=== PATIENT | female | born 1995 | race Caucasian/White ===

== ENCOUNTER 2016-04-19 08:00 | Outpatient (CLI) | payer BC, OTHER | END 2016-04-19 08:01 | disposition home or self-care (01) | DX: Z36 Encounter for antenatal screening of mother (principal) ==

== ENCOUNTER 2016-05-18 03:38 | Inpatient (IN) | payer OTHER ==
[2016-05-18] MEDS ORDERED: ONDANSETRON 4 MG/2 ML VIAL IVP PRN (04:00)
[2016-05-18] MEDS ORDERED: fentaNYL 100 MCG/2 ML VIAL IVP PRN (04:00)
[2016-05-18] MEDS ORDERED: SUFENTA/BUPIV 0.4 MCG/0.0625% 150 ML EP ONE (05:04)
[2016-05-18] MEDS: LACTATED RINGERS 1,000 ML IV SCH ×2 (05:44→05:45)
[2016-05-18] MEDS ORDERED: OXYTOCIN/LACTATED RINGERS 250 ML IV ONE (07:19)
[2016-05-18] MEDS ORDERED: LIDOCAINE 1% 50 ML MDV ONE (07:20)
[2016-05-18] MEDS ORDERED: OXYTOCIN/LACTATED RINGERS 250 ML IV SCH (07:33)
[2016-05-18] MEDS ORDERED: HYDROcod/ACETAM 5/325 MG TABLET PO PRN (09:30)
[2016-05-18] MEDS: IBUPROFEN 600 MG TABLET PO SCH ×3 (10:28→23:19)
[2016-05-18] MEDS ORDERED: WITCH HAZEL/GLYCERIN 1 EACH MED..PAD TOP PRN (10:54)
[2016-05-18] MEDS ORDERED: SODIUM CHLORIDE FLUSH 0.9% 10 ML SYRINGE IVP ONE (11:10)
[2016-05-18] MEDS: HYDROCORTISONE/PRAMOXINE 10 GM PR PRN (11:14)
[2016-05-18] MEDS: DOCUSATE SODIUM 100 MG CAPSULE PO SCH (20:53)
[2016-05-19] MEDS: IBUPROFEN 600 MG TABLET PO SCH ×4 (05:23→23:16)
[2016-05-19] MEDS: DOCUSATE SODIUM 100 MG CAPSULE PO SCH ×2 (08:42→21:06)
[2016-05-19] MEDS: HYDROCORTISONE/PRAMOXINE 10 GM PR PRN (19:02)
[2016-05-20] MEDS: IBUPROFEN 600 MG TABLET PO SCH ×2 (05:31→11:20)
[2016-05-20] MEDS ORDERED: MEASLES,MUMPS & RUBELLA VACC 0.5 ML VIAL SUBQ ONE (10:29)
[2016-05-20] MEDS: DOCUSATE SODIUM 100 MG CAPSULE PO SCH (11:20)
== END 2016-05-20 12:10 | disposition home or self-care (01) | DRG 775 ==
PROC: 0HQ9XZZ Repair Perineum Skin, External Approach (ICD-10-PCS; principal; 2016-05-18)
PROC: 10E0XZZ Delivery of Products of Conception, External Approach (ICD-10-PCS; principal; 2016-05-18)
DX: O76 Abnormality in fetal heart rate and rhythm complicating labor and delivery (principal); O77.0 Labor and delivery complicated by meconium in amniotic fluid; O70.0 First degree perineal laceration during delivery; Z37.0 Single live birth; Z3A.39 39 weeks gestation of pregnancy

== ENCOUNTER 2016-07-26 14:14 | Outpatient (CLI) | payer OTHER | END 2016-07-26 14:15 | disposition home or self-care (01) | DX: Z11.3 Encounter for screening for infections with a predominantly sexual mode of transmission (principal) ==

== ENCOUNTER 2022-10-31 08:00 | Outpatient (CLI) | payer BC, OTHER ==
[2022-10-31 17:10] LABS: BILIRUBIN,URINE NEGATIVE (NEGATIVE); GLUCOSE, URINE (UA) NEGATIVE (NEGATIVE); KETONES,URINE (UA) NEGATIVE (NEGATIVE); LEUKOCYTE ESTERASE, URINE NEGATIVE (NEGATIVE); NITRITE,URINE NEGATIVE (NEGATIVE); OCCULT BLOOD,URINE NEGATIVE (NEGATIVE); PH,URINE 5.5 PH (5.0-7.5); PROTEIN,URINE NEGATIVE (NEGATIVE); UROBILINOGEN,URINE 0.2 (NORMAL) E.U./dL (NORMAL)
[2022-10-31 17:39] LABS: BACTERIA,URINE None Seen /HPF (None Seen); CLARITY,URINE CLEAR (CLEAR); RBC,URINE None Seen /HPF (0-5); SQUAMOUS EPITHELIAL CELL,UR RARE Squamous (<= Few); WBC,URINE 0-3 /HPF (0-5)
== END 2022-10-31 23:59 | disposition home or self-care (01) ==
LOC: LAB.WC 08:00
PROVIDERS: ATTEND Obstetrics & Gynecology
DX: Z34.90 Encounter for supervision of normal pregnancy, unspecified, unspecified trimester (principal)
CPT/HCPCS: 81001; 87086

== ENCOUNTER 2022-11-22 15:30 | Outpatient (CLI) | payer BC ==
--- NOTE | 2022-11-22 18:24 | Ultrasound Report ---
PROCEDURE: OB First Trimester INDICATIONS: POSITIVE TEST OUTSIDE/PRIOR DATING DATA: Last menstrual period (LMP): 09/16/2022. LMP-based estimated date of delivery (CEHCO): 06/23/2023. First dating scan (date and location): 11/22/2022. Estimated date of delivery (CHECO) from first dating scan: 06/19/2023. TECHNIQUE: Real-time scanning was performed of the fetus and maternal pelvic organs, with image documentation. COMPARISON: None FINDINGS: Umapine-rump length and heart beat noted. Embryo: 3.22 cm, 10 weeks 1 day Heart rate: 173 bpm. Other: No perigestational fluid collection. Measurement variability in dating: +/- 4 weeks by LMP, +/- 7 days by mean sac diameter (use before 6 weeks gestation if crown-rump length not able to be measured), +/- 5 days by crown-rump length (6-12 weeks gestation). Maternal organs: Ovaries appear within normal limits. IMPRESSION: 1. Living first trimester uterine with crown-rump length and heart beat measuring 10 weeks 1 day. Reviewed by: Yousif Munoz MD on 11/22/2022 6:23 PM PDT Approved by: Yousif Munoz MD on 11/22/2022 6:23 PM PDT Station ID: [id number]
== END 2022-11-22 15:31 | disposition home or self-care (01) ==
LOC: DI 15:30
PROVIDERS: ATTEND Obstetrics & Gynecology
DX: Z34.01 Encounter for supervision of normal first pregnancy, first trimester (principal)

== ENCOUNTER 2022-12-07 08:00 | Outpatient (CLI) | payer BC ==
[2022-12-07 21:22] LABS: CHLAMYDIA TRACHOMATIS DNA NEGATIVE (NEGATIVE); NEISSERIA GONORRHOEAE DNA NEGATIVE (NEGATIVE); TRICHOMONAS VAGINALIS DNA NEGATIVE (NEGATIVE)
== END 2022-12-07 23:59 | disposition home or self-care (01) ==
LOC: LAB 08:00
PROVIDERS: ATTEND Obstetrics & Gynecology
DX: Z11.3 Encounter for screening for infections with a predominantly sexual mode of transmission (principal)
CPT/HCPCS: 87491; 87591; 87661

== ENCOUNTER 2022-12-07 13:43 | Outpatient (CLI) | payer BC ==
[2022-12-07 13:54] LABS: BASOPHILS % (AUTO) 0.4 %; EOSINOPHILS # (AUTO) 0.1 10^3/uL (0.0-0.7); EOSINOPHILS % (AUTO) 0.9 %; HCT - HEMATOCRIT 38.6 % (37.0-47.0); HGB - HEMOGLOBIN 12.7 g/dL (12.0-16.0); LYMPHOCYTES # (AUTO) 1.9 10^3/uL (1.5-3.5); MEAN CORPUSCULAR HEMOGLOBIN 27.9 pg (27.0-31.0); MEAN CORPUSCULAR HGB CONC 32.9 g/dL (32.0-36.0); MEAN CORPUSCULAR VOLUME 84.8 fL (81.0-99.0); MEAN PLATELET VOLUME 9.3 fL (7.9-10.8); MONOCYTES # (AUTO) 0.5 10^3/uL (0.0-1.0); MONOCYTES % (AUTO) 5.7 %; NEUTROPHILS # (AUTO) 6.8 10^3/uL (1.5-6.6); NEUTROPHILS % (AUTO) 72.3 %; PLT - PLATELET COUNT 251 10^3/uL (130-450); RED BLOOD COUNT 4.55 10^6/uL (4.20-5.40); RED CELL DISTRIBUTION WIDTH 13.1 % (12.0-15.0); WHITE BLOOD COUNT 9.4 x10^3/uL (4.8-10.8)
[2022-12-08 05:13] LABS: RPR Non Reactive (Non Reactive)
[2022-12-08 07:10] LABS: HBsAG SCREEN Negative (Negative)
[2022-12-08 09:09] LABS: VARICELLA-ZOSTER AB IGG <135 index (Immune >165)
[2022-12-08 21:07] LABS: HCV AB Non Reactive (Non Reactive); HIV SCREEN 4TH GENERATION Non Reactive (Non Reactive)
== END 2022-12-07 13:44 | disposition home or self-care (01) ==
LOC: LAB 13:43
PROVIDERS: ATTEND Nurse Practitioner
DX: Z34.90 Encounter for supervision of normal pregnancy, unspecified, unspecified trimester (principal)
CPT/HCPCS: 36415; 85025; 86592; 86762; 86787; 86803; 86850; 86900; 86901; 87340; 87389; 87491; 87591; 87661

== ENCOUNTER 2023-02-06 15:48 | Outpatient (CLI) | payer BC ==
--- NOTE | 2023-02-07 15:34 | Ultrasound Report ---
PROCEDURE: OB 14+ Weeks INDICATIONS: SUPERVISION OF OUTSIDE/PRIOR DATING DATA: Last menstrual period (LMP): 09/16/2022. LMP-based estimated date of delivery (CHECO): 06/23/2023. First dating scan (date and location): 11/22/2022. Estimated date of delivery (CHECO) from first dating scan: 06/19/2023. The below data below was generated using the clinical CHECO of 06/23/2023 TECHNIQUE: Real-time scanning was performed of the fetus, with image documentation and biometric measurements. Endovaginal scanning: Not performed. COMPARISON: Ultrasound 11/22/2022 FINDINGS: General: A single living intrauterine gestation is present. Presentation: Variable Placenta: Placental position is posterior, without previa. Amniotic fluid index: 14.3 cm, within normal limits for gestational age. heart rate: 136 beats per minute. Maternal cervical canal: 4.4 cm long; normal length is 2.5 cm or more. biometrics: Biparietal diameter: 4.9 cm, 20 weeks 6 days, 67.4% Head circumference: 18.7 cm, 21 weeks 0 days, 68.6% Abdominal circumference: 16.2 cm, 21 weeks 2 days, 71.9% Femur length: 3.4 cm, 20 weeks 4 days, 46.8% Estimated gestational age from initial scan: 20 weeks 3 days. Composite gestational age from present scan: 20 weeks 5 days Estimated weight and percentile: 389 g, 75th percentile Measurement variability for biometric dating: +/- 10 days from 12-20 weeks gestation, +/- 2 weeks fro m 20-30 weeks gestation, +/- 3 weeks for 30 weeks gestation or later. Anatomic survey: Neuro: Ventricles are non-dilated at less than 10 mm. Cisterna magna is normal at 3-11 mm. Cerebel lum is normal in size and morphology. Nuchal skin fold: Normal at less than 6 mm between 14-20 weeks gestational age. Face: Not evaluated. Spine: No evidence for spina bifida. Heart: 4-chambered heart is present, with ventricular outflow tracts not evaluated. Diaphragm: Diaphragm is intact. Stomach: Left-sided stomach is present. Kidneys: No hydronephrosis. Normal is less than 5 mm in 2nd trimester, less than 7 mm in 3rd trimester. Cord: 3-vessel cord has orthotopic insertion. Bladder: Normal in size. Extremities: Not evaluated. IMPRESSION: 1.Single live intrauterine at 20 weeks and 5 days. 2.Limited anatomic survey is within normal limits, as described above. Recommend follow-up full anatomic survey. Reviewed by: Som Slaughter MD on 02/07/2023 3:33 PM PST Approved by: Som Slaughter MD on 02/07/2023 3:33 PM PST Station ID: [id number]
== END 2023-02-06 15:49 | disposition home or self-care (01) ==
LOC: DI 15:48
PROVIDERS: ATTEND Obstetrics & Gynecology
DX: Z34.92 Encounter for supervision of normal pregnancy, unspecified, second trimester (principal)

== ENCOUNTER 2023-02-20 15:52 | Outpatient (CLI) | payer BC ==
--- NOTE | 2023-02-22 16:53 | Ultrasound Report ---
PROCEDURE: OB F/U or Repeat INDICATIONS: SUPERVISION OF OUTSIDE/PRIOR DATING DATA: Last menstrual period (LMP): 09/16/2022. LMP-based estimated date of delivery (CHECO): 06/23/2023. First dating scan (date and location): 11/22/2022, Dr. Adhikari. Estimated date of delivery (CHECO) from first dating scan: 06/23/2023. TECHNIQUE: Real-time scanning was performed of the fetus, with image documentation and biometric measurements. Endovaginal scanning: Not performed. COMPARISON: None. FINDINGS: General: A single living intrauterine gestation is present. Presentation: Variable Placenta: Placental position is posterior, without previa. Amniotic fluid index: 13.0 cm, 29.9% for gestational age. heart rate: 145 beats per minute. Maternal cervical canal: 4.3 cm long; normal length is 2.5 cm or more. Estimated gestational age from initial scan: 22 weeks, 3 days Other: The four-chamber view, outflow tracts, chest and diaphragm, stomach, bilateral renal regions, cord insertion and urinary bladder have a normal appearance on the current study. All 4 limbs have a normal appearance on the current study. IMPRESSION: 1. Completed anatomy survey. No sonographic anatomic abnormalities. Reviewed by: Tg Arauz MD on 02/22/2023 4:52 PM [facility] Approved by: Tg Arauz MD on 02/22/2023 4:52 PM PST Station ID: [id number]
== END 2023-02-20 15:53 | disposition home or self-care (01) ==
LOC: DI 15:52
PROVIDERS: ATTEND Obstetrics & Gynecology
DX: Z34.92 Encounter for supervision of normal pregnancy, unspecified, second trimester (principal)

== ENCOUNTER 2023-02-27 08:00 | Outpatient (CLI) | payer BC, MEDICAID ==
[2023-02-27 16:07] LABS: BILIRUBIN,URINE NEGATIVE (NEGATIVE); GLUCOSE, URINE (UA) NEGATIVE (NEGATIVE); KETONES,URINE (UA) NEGATIVE (NEGATIVE); LEUKOCYTE ESTERASE, URINE NEGATIVE (NEGATIVE); NITRITE,URINE NEGATIVE (NEGATIVE); OCCULT BLOOD,URINE NEGATIVE (NEGATIVE); PH,URINE 7.5 PH (5.0-7.5); PROTEIN,URINE NEGATIVE (NEGATIVE); UROBILINOGEN,URINE 0.2 (NORMAL) E.U./dL (NORMAL)
[2023-02-27 16:23] LABS: AMORPHOUS SEDIMENT,UR Marked /LPF; BACTERIA,URINE None Seen /HPF (None Seen); CLARITY,URINE CLEAR (CLEAR); RBC,URINE 0-5 /HPF (0-5); SQUAMOUS EPITHELIAL CELL,UR RARE Squamous (<= Few); WBC,URINE 0-3 /HPF (0-5)
== END 2023-02-27 23:59 | disposition home or self-care (01) ==
LOC: LAB.WC 08:00
PROVIDERS: ATTEND Obstetrics & Gynecology
DX: Z34.90 Encounter for supervision of normal pregnancy, unspecified, unspecified trimester (principal)
CPT/HCPCS: 81001; 87086

== ENCOUNTER 2023-04-06 10:01 | Outpatient (CLI) | payer BC, MEDICAID ==
[2023-04-06 11:18] LABS: HCT - HEMATOCRIT 32.4 % (37.0-47.0); HGB - HEMOGLOBIN 10.3 g/dL (12.0-16.0); MEAN CORPUSCULAR HEMOGLOBIN 26.3 pg (27.0-31.0); MEAN CORPUSCULAR HGB CONC 31.8 g/dL (32.0-36.0); MEAN CORPUSCULAR VOLUME 82.7 fL (81.0-99.0); MEAN PLATELET VOLUME 9.4 fL (7.9-10.8); RED BLOOD COUNT 3.92 10^6/uL (4.20-5.40); WHITE BLOOD COUNT 10.4 x10^3/uL (4.8-10.8)
== END 2023-04-06 10:02 | disposition home or self-care (01) ==
LOC: LAB 10:01
PROVIDERS: ATTEND Obstetrics & Gynecology
DX: Z34.90 Encounter for supervision of normal pregnancy, unspecified, unspecified trimester (principal)
CPT/HCPCS: 36415; 82950; 85027; 86850

== ENCOUNTER 2023-05-15 15:34 | Outpatient (CLI) | payer BC, MEDICAID ==
--- NOTE | 2023-05-15 17:16 | Ultrasound Report ---
PROCEDURE: Abdomen Limited INDICATIONS: ABOMINAL PAIN TECHNIQUE: Real-time focused scanning was performed of the abdomen, with image documentation. COMPARISONS: None. FINDINGS: Liver: Liver is normal in size and homogeneous in echotexture. Hepatopetal flow is seen in the port al vein. Gallbladder: The gallbladder appears normal without gallstones or gallbladder wall thickening. There is no pericholecystic fluid. Sonographic Padilla sign is negative. Biliary ducts: Intrahepatic bile ducts are non-dilated. Extrahepatic bile duct caliber measures 3 m m. Normal is 6-7 mm or less in diameter, or 10 mm or less post-cholecystectomy. Pancreas: Not well visualized due to overlying bowel gas. Right kidney: Normal in size and echotexture. Right kidney measures 11.4 cm long. No hydronephrosis or nephrolithiasis. No solid masses. No complex renal cystic lesions which require follow-up. Miscellaneous: Gravid uterus. IMPRESSION: Normal gallbladder. No acute sonographic abnormality in the right upper quadrant. Reviewed by: Manish Mandujano MD on 05/15/2023 5:14 PM PST Approved by: Manish Mandujnao MD on 05/15/2023 5:14 PM PST Station ID: [id number]
== END 2023-05-15 15:35 | disposition home or self-care (01) ==
LOC: DI 15:34
PROVIDERS: ATTEND Obstetrics & Gynecology
DX: O99.891 Other specified diseases and conditions complicating pregnancy (principal); R10.11 Right upper quadrant pain; Z3A.34 34 weeks gestation of pregnancy

== ENCOUNTER 2023-05-25 17:31 | Outpatient (CLI) | payer BC, MEDICAID ==
--- NOTE | 2023-05-26 19:05 | Ultrasound Report ---
PROCEDURE: OB Follow up INDICATIONS: UTERINE SIZE-DATE DISCREPANCY OUTSIDE/PRIOR DATING DATA: Last menstrual period (LMP): 09/16/2022. LMP-based estimated date of delivery (CHECO): 06/23/2023. First dating scan (date and location): 11/22/2022. Estimated date of delivery (CHECO) from first dating scan: 06/09/2023. The below data below was generated using the clinical CHECO of 06/23/2023 TECHNIQUE: Real-time scanning was performed of the fetus, with image documentation and biometric measurements. Endovaginal scanning: Not performed. COMPARISON: OB ultrasound on May 05, 2023 FINDINGS: General: A single living intrauterine gestation is present. Presentation: Vertex Placenta: Placental position is posterior, without previa. Amniotic fluid index: 10.1 cm, within normal limits for gestational age. heart rate: 143 beats per minute. Maternal cervical canal: Not well seen biometrics: Biparietal diameter: 8.87 cm, 35 weeks and 6 days, 58.1% Head circumference: 32.5 cm, 37 weeks and 4 days, 60.3% Abdominal circumference: 34.4 cm, 38 weeks and 2 days, 19.3% Femur length: 6.63 cm, 34 weeks and 1 day, 9% (likely an underestimate) Estimated gestational age from initial scan: 35 weeks and 6 days. Composite gestational age from present scan: 36 weeks and 3 days Estimated weight and percentile: 3086.4 g, 80.5% Measurement variability in biometric dating: +/- 10 days from 12-20 weeks gestation, +/- 2 weeks from 20-30 weeks gestation, +/- 3 weeks at 30 weeks gestation or more. Other: Not applicable. IMPRESSION: 1.Single living intrauterine gestation in vertex presentation. Gestational age from present scan is 3 6 weeks and 3 days. 2.Interval growth is within normal limits with estimated weight at 80.5%. 3.Nuchal cord. Attention on follow-up. Reviewed by: Navin Soto MD on 05/26/2023 7:03 PM PST Approved by: Navin Soto MD on 05/26/2023 7:03 PM PST Station ID: [id number]
== END 2023-05-25 17:32 | disposition home or self-care (01) ==
LOC: DI 17:31
PROVIDERS: ATTEND Obstetrics & Gynecology
DX: O26.843 Uterine size-date discrepancy, third trimester (principal); Z3A.36 36 weeks gestation of pregnancy

== ENCOUNTER 2023-06-05 08:00 | Outpatient (CLI) | payer BC, MEDICAID | END 2023-06-05 23:59 | disposition home or self-care (01) | LOC: LAB.WC 08:00 | PROVIDERS: ATTEND Obstetrics & Gynecology | DX: Z36.85 Encounter for antenatal screening for Streptococcus B (principal) | CPT/HCPCS: 87081; 87181; 87797 ==

== ENCOUNTER 2023-06-28 14:44 | Inpatient (IN) | payer BC, MEDICAID ==
[2023-06-28] MEDS ORDERED: METHYLERGONOVINE 0.2 MG/ML VIAL IM PRN (14:51)
[2023-06-28] MEDS ORDERED: hydrALAZINE INJ 20 MG/ML VIAL IVP PRN ×2 (14:51)
[2023-06-28] MEDS ORDERED: miSOPROStoL 200 MCG TABLET PR PRN (14:51)
[2023-06-28] MEDS ORDERED: LACTATED RINGERS 1,000 ML IV PRN (14:51)
[2023-06-28] MEDS ORDERED: miSOPROStoL 200 MCG TABLET BC PRN (14:51)
[2023-06-28] MEDS ORDERED: SODIUM CHLORIDE FLUSH 0.9% 10 ML SYRINGE IVP PRN (14:51)
[2023-06-28] MEDS ORDERED: TRANEXAMIC ACID IN NACL 1,000 MG/100 ML BAG IV PRN (14:51)
[2023-06-28] MEDS ORDERED: lidocaine 1% 20 ML MDV ID PRN (14:51)
[2023-06-28] MEDS ORDERED: fentaNYL 100 MCG/2 ML VIAL IVP PRN (14:51)
[2023-06-28] MEDS ORDERED: TERBUTALINE 1 MG/ML VIAL SUBQ PRN (14:51)
[2023-06-28] MEDS ORDERED: NIFEdipine 10 MG CAPSULE PO PRN (14:51)
[2023-06-28] MEDS ORDERED: LABETALOL 20 MG/4 ML SYRINGE IVP PRN ×3 (14:51)
[2023-06-28] MEDS ORDERED: OXYTOCIN 10 UNIT/ML VIAL IM PRN (14:51)
[2023-06-28] MEDS ORDERED: OXYTOCIN/SODIUM CHLORIDE 500 ML IV PRN (14:51)
[2023-06-28] MEDS ORDERED: CARBOPROST TROMETHAMINE 250 MCG/ML VIAL IM PRN (14:51)
[2023-06-28] MEDS ORDERED: SODIUM CHLORIDE FLUSH 0.9% 10 ML SYRINGE IVP SCH (15:00)
--- NOTE | 2023-06-28 16:01 | ANESTHESIA ---
Pre-Anesthesia VS, & Labs - Diagnosis labor induction - Procedure labor epidural Vital Signs: Temp Pulse Resp BP Pulse Ox O2 Flow Rate 36.8 C 06/28/23 14:55 Height: 5 ft 5 in Weight (kg): 92.079 kg Body Mass Index: 33.7 BMI Classification: Obese - NPO Other (to be clears only after epidural) - Is Patient ?: Yes Home Medications and Allergies Active Medications Carboprost Tromethamine (Carboprost Tromethamine 250 Mcg/Ml Vial) 250 mcg IM .ONCE PRN PRN Reason: Hemorrhage Fentanyl (Fentanyl 100 Mcg/2 Ml Vial) 50 mcg IVP Q1H PRN PRN Reason: Severe Pain (score 7-10) Hydralazine HCl (Hydralazine Inj 20 Mg/Ml Vial) 5 - 10 mg IVP Q20M PRN; Protocol PRN Reason: SBP> or= 160 OR DBP> or= 110 Hydralazine HCl (Hydralazine Inj 20 Mg/Ml Vial) 10 mg IVP .ONCE PRN; Protocol PRN Reason: SBP> or= 160 OR DBP> or= 110 Lactated Ringer's (Lr) 500 mls @ 999 mls/hr IV PRN PRN PRN Reason: NEEDED PER PROVIDER ORDERS Oxytocin/Sodium Chloride (Pitocin/Sodium Chloride) 500 mls @ 999 mls/hr IV PRN PRN; Protocol PRN Reason: POST- HEMORR PREVENTION Tranexamic Acid (Tranexamic 1,000 Mg/100ml-Nacl) 1,000 mg in 100 mls @ 600 mls/hr IV Q30M PRN PRN Reason: EBL >1200mL and within 3hr Labetalol HCl (Labetalol 20 Mg/4 Ml Syringe) 20 - 80 mg IVP Q10M PRN; Protocol PRN Reason: SBP> or= 160 OR DBP> or= 110 Labetalol HCl (Labetalol 20 Mg/4 Ml Syringe) 20 mg IVP .ONCE PRN; Protocol PRN Reason: SBP> or= 160 OR DBP> or= 110 Labetalol HCl (Labetalol 20 Mg/4 Ml Syringe) 20 - 40 mg IVP Q10M PRN; Protocol PRN Reason: SBP> or= 160 OR DBP> or= 110 Lidocaine HCl (Lidocaine 1% 20 Ml Mdv) 20 ml ID .ONCE PRN PRN Reason: PERINEAL REPAIR Stop: 07/01/23 14:51 Methylergonovine Maleate (Methylergonovine 0.2 Mg/Ml Vial) 0.2 mg IM .ONCE PRN PRN Reason: Hemorrhage Misoprostol (Misoprostol 200 Mcg Tablet) 600 mcg BC .ONCE PRN PRN Reason: Hemorrhage Misoprostol (Misoprostol 200 Mcg Tablet) 800 mcg DE .ONCE PRN PRN Reason: Hemorrhage Nifedipine (Nifedipine 10 Mg Capsule) 10 - 20 mg PO Q20M PRN; Protocol PRN Reason: SBP> or= 160 OR DBP> or= 110 Oxytocin (Oxytocin 10 Unit/Ml Vial) 10 unit IM .ONCE PRN PRN Reason: Step One if no IV access. Sodium Chloride (Sodium Chloride Flush 0.9% 10 Ml Syringe) 10 ml IVP PRN PRN PRN Reason: NEEDED PER PROVIDER ORDERS Sodium Chloride (Sodium Chloride Flush 0.9% 10 Ml Syringe) 10 ml IVP Q8H FINA Terbutaline Sulfate (Terbutaline 1 Mg/Ml Vial) 0.25 mg SUBQ .ONCE PRN PRN Reason: Tachystole Allergies/Adverse Reactions: Allergies Allergy/AdvReac Type Severity Reaction Status Date / Time No Known Drug Allergies Allergy Verified 05/18/16 04:07 Anes History & Medical History - Anesthetic History Anesthesia Complications: reports: No previous complications - Medical History Cardiovascular: reports: None Pulmonary: reports: None Smoking Status: Never smoker Exam General: Alert, Oriented x3 Dental: WNL Mouth Opening: Greater than 4 Fingerbreadths Neck Mobility: Normal Mallampati classification: II Thyromental Distance: greater than 6 cm Respiratory: Lungs clear Cardiovascular: Regular rate Plan Anesthesia Type: Epidural Consent for Procedure(s) Verified and Reviewed: Yes Code Status: Attempt Resuscitation ASA classification: 2-Mild systemic disease Is this case an emergency?: No
[2023-06-28 16:27] LABS: BASOPHILS # (AUTO) 0.1 10^3/uL (0.0-0.1); BASOPHILS % (AUTO) 0.5 %; EOSINOPHILS # (AUTO) 0.1 10^3/uL (0.0-0.7); EOSINOPHILS % (AUTO) 0.9 %; HCT - HEMATOCRIT 40.2 % (37.0-47.0); HGB - HEMOGLOBIN 12.7 g/dL (12.0-16.0); LYMPHOCYTES # (AUTO) 1.9 10^3/uL (1.5-3.5); LYMPHOCYTES % (AUTO) 20.5 %; MEAN CORPUSCULAR HGB CONC 31.6 g/dL (32.0-36.0); MEAN CORPUSCULAR VOLUME 82.2 fL (81.0-99.0); MEAN PLATELET VOLUME 11.1 fL (7.9-10.8); MONOCYTES # (AUTO) 1.1 10^3/uL (0.0-1.0); MONOCYTES % (AUTO) 11.4 %; NEUTROPHILS % (AUTO) 65.7 %; PLT - PLATELET COUNT 289 10^3/uL (130-450); RED BLOOD COUNT 4.89 10^6/uL (4.20-5.40); RED CELL DISTRIBUTION WIDTH 15.9 % (12.0-15.0); WHITE BLOOD COUNT 9.2 x10^3/uL (4.8-10.8)
[2023-06-28] MEDS ORDERED: CALCIUM CARBONATE CHEW 500 MG TABLET PO PRN (16:58)
[2023-06-28] MEDS ORDERED: AMPICILLIN 2 GM in SODIUM CHLORIDE 0.9% MINIBAG 100 ML IV STA (16:58)
[2023-06-28] MEDS ORDERED: ONDANSETRON 4 MG/2 ML VIAL IVP PRN (16:58)
[2023-06-28] MEDS ORDERED: diphenhydrAMINE INJ 50 MG/ML VIAL IVP PRN (16:58)
[2023-06-28] MEDS ORDERED: METOCLOPRAMIDE 10 MG/2 ML VIAL IVP PRN (16:58)
[2023-06-28] MEDS ORDERED: ACETAMINOPHEN 500 MG TABLET PO PRN (16:58)
[2023-06-28] MEDS ORDERED: OXYTOCIN/SODIUM CHLORIDE 500 ML IV SCH (17:00)
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
[2023-06-28] MEDS ORDERED: AMPICILLIN 1 GM in SODIUM CHLORIDE 0.9% MINIBAG 100 ML IV SCH (21:00)
== END 2023-06-28 17:20 | disposition home or self-care (01) | DRG 833 ==
LOC: WFO 14:44 → FBP 14:45 → WFO 14:50 → FBP 14:51
PROVIDERS: ADMIT Obstetrics & Gynecology; ATTEND Obstetrics & Gynecology
DX: O48.0 Post-term pregnancy (principal); Z3A.40 40 weeks gestation of pregnancy; Z53.8 Procedure and treatment not carried out for other reasons
CPT/HCPCS: 85025; 86850; 86900; 86901

== ENCOUNTER 2023-06-29 08:31 | Inpatient (IN) | payer BC, MEDICAID ==
[2023-06-29] MEDS ORDERED: ONDANSETRON 4 MG/2 ML VIAL IVP PRN ×2 (08:38→20:02)
[2023-06-29] MEDS ORDERED: miSOPROStoL 200 MCG TABLET BC PRN (08:38)
[2023-06-29] MEDS ORDERED: CARBOPROST TROMETHAMINE 250 MCG/ML VIAL IM PRN (08:38)
[2023-06-29] MEDS ORDERED: fentaNYL 100 MCG/2 ML VIAL IVP PRN (08:38)
[2023-06-29] MEDS ORDERED: OXYTOCIN 10 UNIT/ML VIAL IM PRN (08:38)
[2023-06-29] MEDS ORDERED: OXYTOCIN/SODIUM CHLORIDE 500 ML IV PRN (08:38)
[2023-06-29] MEDS ORDERED: METHYLERGONOVINE 0.2 MG/ML VIAL IM PRN (08:38)
[2023-06-29] MEDS ORDERED: SODIUM CHLORIDE FLUSH 0.9% 10 ML SYRINGE IVP PRN (08:38)
[2023-06-29] MEDS ORDERED: TRANEXAMIC ACID IN NACL 1,000 MG/100 ML BAG IV PRN (08:38)
[2023-06-29] MEDS ORDERED: lidocaine 1% 20 ML MDV ID PRN (08:38)
[2023-06-29] MEDS ORDERED: SODIUM CHLORIDE FLUSH 0.9% 10 ML SYRINGE IVP SCH (09:00)
[2023-06-29] MEDS: AMPICILLIN 2 GM in SODIUM CHLORIDE 0.9% MINIBAG 100 ML IV ONE (09:16)
[2023-06-29] MEDS: LACTATED RINGERS 1,000 ML IV SCH (09:17)
[2023-06-29] MEDS: OXYTOCIN/SODIUM CHLORIDE 500 ML IV SCH (09:48)
[2023-06-29] MEDS: AMPICILLIN 1 GM in SODIUM CHLORIDE 0.9% MINIBAG 100 ML IV SCH (13:30)
[2023-06-29] MEDS ORDERED: ROPIVACAINE 0.2% 200 MG/100 ML BAG EP ONE ×2 (19:31→19:33)
[2023-06-29] MEDS ORDERED: LIDOCAINE 2%-EPI 1:100000 20 ML MDV ONE (19:31)
[2023-06-29] MEDS ORDERED: diphenhydrAMINE INJ 50 MG/ML VIAL IVP PRN (20:02)
[2023-06-29] MEDS ORDERED: METOCLOPRAMIDE 10 MG/2 ML VIAL IVP PRN (20:02)
[2023-06-29] MEDS ORDERED: ROPIVACAINE 0.2% 200 MG/100 ML BAG EP PRN (20:02)
[2023-06-29] MEDS ORDERED: NALBUPHINE 10 MG/ML AMP IVP PRN (20:02)
[2023-06-29] MEDS ORDERED: NALOXONE 0.4 MG/ML VIAL IVP PRN (20:02)
[2023-06-29] MEDS ORDERED: ePHEDrine 50 MG/ML VIAL IVP PRN (20:02)
--- NOTE | 2023-06-29 20:49 | HISTORY & PHYSICAL EXAMINATION ---
Admit History - Visit Reason Visit Reason: Other (induction of labor at 40+ weeks ga.) - : 2 Parity: 1 Care: positive: [facility] Complications This : positive: None Smoking Status: Never smoker - Mother's Labs GBS: positive: Group B Strep Positive Rubella Status: positive: Non-immune - Other Maternal History Other Maternal History: 27 yo at 40w 6d by LMP = 10 week ultrasound. presents today for induction of labor. came in yesterday but then sent home as staffing issues. 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 in pain? no Vitals Entered By: Kasey Billingsley (June 16, 2023 1:24 PM) Flowsheet View for Follow-up Visit Estimated weeks of gestation: 39 0/7 Weight: 200 Blood pressure: 124 / 70 Fundal height: not done FHR: 139 Vaginal bleeding: no Vaginal discharge: no activity: yes Labor symptoms: yes position: vertex Cx Dilation: 2.5 Cx Effacement: 60% Cx Station: -2 Taking vits? Y Smoking: n/a Next visit: 1 wk Comment: Baby active. Came in for membrane sweeping, and she definately received a good sweeping. Does not desire IOL. Some contractions, but nothing consistent. Less differentiation today from inner to outer os. Thinks a [employer] Day would be a great day to go into spontaneous labor~KJB LMP: 09/16/22 CHECO by LMP: 06/23/23 US: 11/22/2022; 10+1 CW LMP Final CHECO: 06/23/2023 FOB: Jorgito, new FOB - 7yo son - uncomplicated first last time. 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 . GERD - PPI effective Rubella NON-immune (equivocal) Varicella NON-immune anemia in third trimester - started on iron Apr. Size greater than dates EFW 05/25: EFW 80.5%, MARQUIS 10.1 Pre- Weight:160.8 BMI: 26.86 Blood type: A+ Rh: positive Antibody: negative CBC: PLT-251 HCT-38.6 HGB-12.7 RUB: equivocal VZV: non-immune HBsAg: negative HepC: negative RPR/AB-EIA: non-reactive HIV: negative PAP: August 31, 2022, "abnormal" per pt with HSV1 noted GC/CT: collected 12/07 Negative HSV: cold sores on self Genetic testing: declines 01/02 Covid: Pfizer initial set + 1 booster Flu: Given 01/02/2023 FAS: 02/06 Placenta: Posterior Cord: 3VC MARQUIS: 14.3 EFW: 389 75%tile 50gm OGCT: 116 TDAP:04/06 Breast Pump:04/06 3rd trimester H/H 10.3/32.4 PLT 227 GBS: Positive - resistant to clindamycin Delivery plan: Contraception: no more children, wants FOB to get a vasectomy. Declined signing tubal consents after counselling. Impression & Recommendations: Problem # 1: Supervision of normal (ICD-V22.1) (ZXR19-C46.90) Problem # 2: Group B strep in , third trimester (ICD-647.83) (ICD10- O99.820) Other Orders: Visit Code Hold ([facility]-[id number]) P: 1 T: 1 A: 0 L: 1 LMP: 09/16/2022 EDC: 06/23/2023 Height: 65 (05/22/2023 11:21:49 AM) Weight: 200 Chlamydia: NEGATIVE (12/07/2022 1:00:00 PM) Group B: POSITIVE (06/05/2023 11:01:00 AM) Blood Type: A+ (12/07/2022 8:33:52 AM) RH Type: pos (12/07/2022 8:33:57 AM) Last Antibody Screen: negative (12/07/2022 8:34:00 AM) Is pt sexually active? yes Chlamydia: NEGATIVE (12/07/2022 1:00:00 PM) RPR: Non Reactive (12/07/2022 1:49:00 PM) - HPI Diagnosis/Indication for NST: Other (before induction) Current EDU 06/23/23 Gestation 40 Weeks and 6 Days 2 Vital Signs Temperature 97.9 F 06/29/23 09:35 Temperature 97.9 F 06/29/23 09:35 Heart Rate Respiratory Rate Blood Pressure O2 Saturation If not protocol: Oxygen Flow, liters/minute - NST Procedure Reactive for of 32 weeks gestation or more. NST tracing contains at least two heart rate accelerations that are at least 15 beats per minute above the baseline rate and lasting at least 15 seconds from onset to return to baseline within a twenty minute period. - Results and Plan Findings/Impression: reactive NST Plan: start pitocin Meds/Allgy - Home Medications Home Medications: Ambulatory Orders Medication Instructions Recorded Confirmed Ibuprofen [Motrin] 600 mg PO Q6H 06/29/23 06/29/23 - Allergies Allergies/Adverse Reactions: Allergies Allergy/AdvReac Type Severity Reaction Status Date / Time No Known Drug Allergies Allergy Verified 05/18/16 04:07 Review of Systems - Respiratory Respiratory: denies: SOB at rest - Gastrointestinal Gastrointestinal: denies: Vomiting - Neurological Neurological: denies: Headache Physical - Abdominal Exam Vital Signs: Temp Pulse Resp BP Pulse Ox O2 Flow Rate 97.9 F 06/29/23 09:35 Contraction Frequency (min/apart): irregular Contraction Intensity: positive: Mild - Monitoring Strip Review: positive: Category I - Presentation Presentation: positive: Vertex - Vaginal Exam Membranes: positive: Membranes intact Dilation (in cm): per RN - Speculum Exam Speculum Exam Performed: positive: No Plan for Labor - Plan For Labor I expect patient to be DC'd or transferred within 96 hours.: Yes Plan for Labor: induction now 40w6d. will give GBS prophylaxis, and start pitocin and then AROM after 4 hrs after ampicillin. consents for induction reviewed and signed yesterday. made plan as above with her then. does wish epidural. anticipate later today.
--- NOTE | 2023-06-29 20:59 | PROVIDER PROGRESS NOTE ---
Labor Progress Note - Uterine Monitoring Uterine Monitoring Mode: positive: External toco Contraction Frequency (min/apart): 2-3 Contraction Intensity: positive: Moderate Uterine Resting Tone: positive: Soft - Monitoring Monitor Mode: positive: External ultrasound Heart Rate Variability: positive: Moderate (6-25 bmp) Accelerations: positive: Present, 15x15 Decelerations: positive: None Strip Review: positive: Category I - Vaginal Exam Dilation (in cm): 4 Effacement (%): 80 Station: -3 Cervical Position: Posterior - Labor Progress Note Labor Progress Note/Additional Text: AROM Done and clear fluid. pitocin at 5 mu. using nitrous some. not ready for epidural yet. will decrease pitocin as needed. or increase.
--- NOTE | 2023-06-29 22:37 | CONSULTATION NOTE ---
Consultation Report: Called for patient concerns of epidural level getting too high. Assessed at T4 per RN prior to arrival. VSS. Pt with good movement of LE, diminished sensation. No pain with contractions. Epidural rate decreased to 8cc [id number] with an additional 20 minute delay for first bolus after changes. Discussed changes with patient/RN.
--- NOTE | 2023-06-29 23:34 | DELIVERY NOTE ---
Delivery Note - Labor Labor: positive: Induced by oxytocin - Infant Delivery Method Delivery Method: positive: Spontaneous vaginal delivery - Presentation Presentation: positive: Vertex, OA - occiput anterior - Nuchal Cord Nuchal Cord: positive: Present, Reduced - Anesthetic Anesthetic Type: - Amniotic Fluid Description Amniotic Fluid Description: positive: Clear - Episiotomy Type Episiotomy Type: positive: None - Laceration Laceration: positive: 1st degree - Suture Suture Type: positive: Vicryl (Rapide) Suture Size: positive: 3-0 - Delivery Outcome Delivery Outcome: positive: Livebirth - [place]: positive: Placed in direct skin contact with mother, Suctioned, Stimulated, Warmed, [place] used sex: positive: Male - Cord Cord: positive: 3 vessels, True knot - Placenta Placenta: positive: Intact, Spontaneous - Estimated Blood Loss Estimated Blood Loss (in cc): 200 - Post Delivery Events Post Delivery Events: positive: No post delivery events - Delivery Comments (Free Text/Narrative) Delivery Comments (Free Text/Narrative): patient was admitted for labor induction as she was 40w6d. she was 3 cm oxytocin was started and Ampicillin. AROM was performed. Epidural was placed in the evening and then she progressed to complete about 10 pm. She pushed thru about 6 contractions to deliver her baby in OA position over intact perineum. Baby was placed up on her belly after and remained there. There was a nuchal cord x 1 reduced easily. Cord was clamped after about 2 min and cut by dad. Oxytocin was infused. Placenta delivered spontaneously. Uterus contracted well. There were small, bilateral periurethral lacerations that were not bleeding and not repaired. There was a small perineal laceration that was repaired with a figure of 8 of 0 Vicryl Rapide suture. no complications. Patient, FOB Jorgito, and baby Seth are doing well. Patient's mom also present. counts were correct.
[2023-06-29] MEDS ORDERED: HYDROCORTISONE 1% CREAM 28 GM TUBE PR PRN (23:35)
[2023-06-30] MEDS: IBUPROFEN 600 MG TABLET PO SCH (02:20)
[2023-06-30] MEDS: ACETAMINOPHEN 325 MG TABLET PO PRN (04:33)
[2023-06-30] MEDS: DOCUSATE SODIUM 100 MG CAPSULE PO SCH (08:58)
--- NOTE | 2023-06-30 09:11 | PROVIDER PROGRESS NOTE ---
Subjective - Subjective Subjective: Subjective Patient reports she is doing well. Lochia appropriate. Denies heavy bleeding. Ambulating. Pelvic and abdominal pain well-controlled. Tolerating oral intake. Diet: Regular. Voiding without difficulty. Passing flatus. Denies BM. Patient is bonding with baby in room Breast feeding going well. Denies feeling lightheaded, dizzy or excessively fatigued. Objective General: Alert, oriented, no apparent distress. Cardiovascular: Regular rate. Regular rhythm. Lungs: No increased work of breathing. Abdomen: Uterus firm. Below umbilicus. No guarding or rebound. Extremities: No pain on palpation. No cords palpated. Distal pulses intact. Assessment and Plan day 1. -Routine care -Anticipate discharge tomorrow Objective - Vital Signs/Intake & Output Vital Signs: Vital Signs x48h Temp Pulse Resp BP Pulse Ox 06/30/23 04:43 98.2 F 75 16 135/80 H 06/30/23 02:00 98.4 F 102 H 16 122/75 98 Intake & Output: Intake & Output 06/27/23 06/28/23 06/29/23 06/30/23 23:59 23:59 23:59 23:59 Intake Total 1749.417 816.416 Output Total 750 Balance 1749.417 66.416 - Lab Results Other Labs: Lab Results x24hrs 06/29/23 Range/Units 09:45 Blood Type A POSITIVE Antibody Screen NEGATIVE
--- NOTE | 2023-06-30 11:27 | PHARMACY PROGRESS NOTE ---
- Best Possible Medication History Admit Date and Time: 06/29/23 0838 Processed by: Pharmacy Medications reviewed in ED?: Yes Medication History completed: Yes Patient Interview: Pt unable to participate Secondary Source(s): Pharmacy records, Insurance records As the person ultimately responsible for medication therapy, providers are able to order a medication from an existing home medication list in [facility] via the "Reconcile Routine" prior to Confirmation of that medication by technical support coordinator. Such practice is discouraged except when the physician, in their clinical judgment, deems that a medical need exists for a medication without regard to previous use.
[2023-06-30] MEDS: WITCH HAZEL/GLYCERIN 1 PAD TOP PRN (20:39)
[2023-07-01 09:32] VITALS: BP 116/78; O2SAT 96
--- NOTE | 2023-07-01 09:59 | Discharge Plan ---
Discharge Plan Problem Reviewed?: Yes Disposition: Home, Self Care Condition: Good Diet: Regular Activity Restrictions: Additional Comments Shower Restrictions: No Instruction Topics: Vaginal After, Depression No Smoking: If you smoke, Please STOP! Call for help. Follow-up with: Shen Jacob MD [Provider Admit Priv/Credential] -
--- NOTE | 2023-07-01 10:02 | DISCHARGE SUMMARY ---
Discharge Summary Admit Date: 06/29/23 Discharge Date: 07/01/23 Discharging Provider: Shen Jacob MD Code Status: Attempt Resuscitation Condition at Discharge: Good Discharge Disposition: 01 Home, Self Care - DIAGNOSES Admission Diagnoses: 40 weeks gestation Induction of labor GBS positive Discharge Diagnoses with Status of Each Condition: Same Delivery of live lynne Status post spontaneous vaginal delivery - HPI History of Present Illness: Subjective Patient reports she is doing well. Lochia appropriate. Denies heavy bleeding. Ambulating. Pelvic and abdominal pain well-controlled. Tolerating oral intake. Diet: Regular. Voiding without difficulty. Passing flatus. Denies BM. Patient is bonding with baby Breast feeding going well. Denies feeling lightheaded, dizzy Objective General: Alert, oriented, no apparent distress. Cardiovascular: Regular rate. Regular rhythm. Lungs: No increased work of breathing. Abdomen: Uterus firm. Below umbilicus. No guarding or rebound. Extremities: No pain on palpation. No cords palpated. Distal pulses intact. - HOSPITAL COURSE Hospital Course: Patient was admitted at 40 weeks gestation for induction of labor. She was 3 cm dilated and oxytocin was started as well as ampicillin. She had a artificial rupture of membranes. She received an epidural for pain control. was uncomplicated, but had a nuchal cord that was reduced. course was unremarkable and was discharged on day 2. - ALLERGIES Allergies/Adverse Reactions: Allergies Allergy/AdvReac Type Severity Reaction Status Date / Time No Known Drug Allergies Allergy Verified 05/18/16 04:07 - MEDICATIONS Home Medications: Ambulatory Orders Medication Instructions Recorded Confirmed Famotidine 40 mg PO DAILY 06/30/23 06/30/23 Ferrous Sulfate [Feosol] 325 mg PO BID 06/30/23 06/30/23 Ondansetron HCl 4 mg PO TID PRN 06/30/23 06/30/23 - FOLLOW UP [facility] - TIME SPENT Time Spent in Discharge (Minutes): 20
[2023-07-01] MEDS: MEASLES,MUMPS & RUBELLA VACC 0.5 ML VIAL SUBQ ONE (11:42)
[2023-07-01] MEDS: VARICELLA VACCINE LIVE/PF 1,350 UNIT/0.5 ML VIAL SUBQ ONE (11:56)
--- NOTE | 2023-07-01 13:36 | Labor Flowsheet ---
Labor Flowsheet Datetime Report Generated by CPN: 07/01/2023 13:36 Datetime: 07/01/2023 11:43 VITAL SIGNS NBP Sys/Daina/Mean (mmHg): 120 : 71 : 82 Pulse: 68 Datetime: 06/30/2023 20:19 SpO2 (%): 97 Datetime: 06/30/2023 01:10 Respirations: 16 PAIN Pain Scale: 1 Datetime: 06/29/2023 23:59 Temperature (C): 36.9 Datetime: 06/29/2023 23:30 Epidural Procedure Other: Cath Removed; Cath Intact Datetime: 06/29/2023 23:15 Stage of : Recovery Datetime: 06/29/2023 23:14 LaborFlag: Labor Datetime: 06/29/2023 23:13 MEDICATIONS Pitocin (milliunits): Increased to @ 250 Datetime: 06/29/2023 23:09 Medication Comments: pit bolus startted Datetime: 06/29/2023 22:55 STAGE 2 Pushing: Coached on Pushing Pushing Position: Pushing with Contractions Pushing Progress: Descent with Pushing Datetime: 06/29/2023 22:48 ASSESSMENT A Monitor Mode: External US Accelerations: 15X15 VAGINAL EXAM Dilatation (cm): 10.0 Station: 2 Exam by: Aguillon Datetime: 06/29/2023 22:46 COMMUNICATION Communication: Provider at Bedside Datetime: 06/29/2023 22:45 Anesthesia Level Check: T9 Datetime: 06/29/2023 22:33 UTERINE ACTIVITY Monitor Mode: External Frequency (min): 1-3 Quality: Strong Duration (sec): 60 Pattern: Normal: <= 5 Contractions in 10 Minutes Resting Tone (Palpate): Relaxed Pitocin Checklist: At Least 1 Acceleration of 15 bpm x 15 Seconds in 30 Minutes or Adequate Variabi lity; No More than 1 Late Deceleration Occurred in Past 30 Minutes; No More than 2 Variable Decelerat ions > 60 Seconds in Duration and decreasing >60 bpm in 30 minutes; No More than 5 Uterine Contractio ns in 10 Minutes for any 20 Minute Interval; Uterus Palpates Soft between Contractions FHR Baseline Rate : 130 FHR Baseline Changes: No Baseline Change Variability: Moderate 6-25 bpm Decelerations: Variable Category: Category II Datetime: 06/29/2023 22:31 Notification Reason: Status Update; Labor Status Communication Comments: Dr Aguillon on her way in Datetime: 06/29/2023 22:25 Anesthesia Comments: at bedside bolus turned down Datetime: 06/29/2023 22:13 Patient Position/Activity: Left Tilt; High Fowlers Datetime: 06/29/2023 21:58 MATERNAL ASSESSMENT Level of Consciousness: Alert DTR's/Clonus: DTRs 1+ Headache: Denies Nausea/Vomiting: Denies RUQ Epigastric Pain: Denies Datetime: 06/29/2023 21:55 Antibiotics: Ampicillin IV 1 Gm Datetime: 06/29/2023 21:42 Monitor Interventions for UA: [place] Adjusted Datetime: 06/29/2023 21:05 Effacement (%): 90 Datetime: 06/29/2023 20:30 I/O Interventions: [place]oso Cath Inserted Datetime: 06/29/2023 19:50 Epidural Procedure: Loading Dose Datetime: 06/29/2023 19:43 TEACHING Instructional Method: Verbal; Patient Instructed; Family/Support Person Instructed Plan of Care: Plan of Care Discussed Pain Management: Epidural Datetime: 06/29/2023 19:42 PROCEDURE TIME OUT Procedure Type: Epidural Datetime: 06/29/2023 19:37 Procedure Verify: Correct Patient Identity; Correct Side and Site are Marked; Accurate Procedure Co nsent Form; Agreement on Procedure to be Done; Correct Patient Position; Relevant Images and Results are Properly Labeled and Displayed; Addressed Need to Administer Antibiotics or Fluids for Irrigation ; Safety Precautions Based on Patient History or Medication Use ANESTHESIA Epidural Positioning: Sitting Datetime: 06/29/2023 19:13 Amniotic Fluid Color: Clear Amniotic Fluid Amount: Small Amniotic Fluid Odor: Normal Vaginal Bleeding: None Cervix, Consistency: Soft Cervix, Position: Midposition Datetime: 06/29/2023 19:01 Patient Care Comments: Report given to oncoming RN Datetime: 06/29/2023 18:36 Temperature Route: Oral Pain Presence: Intermittent Pain Type: Contraction Comfort Measures: Breathing/Relaxation; Family Support Datetime: 06/29/2023 17:45 Contraction Comments: unable to determine to maternal position Datetime: 06/29/2023 17:06 Membranes Ruptured Date/Time: 06/29/2023 15:39 Datetime: 06/29/2023 15:42 Pain Assessment Comments: pt resumes nitrious oxide Datetime: 06/29/2023 15:39 Membrane Status: Ruptured Membranes Rupture Method: Artificial Datetime: 06/29/2023 15:28 Monitor Interventions for FHR: Ultrasound Adjusted Datetime: 06/29/2023 14:23 Pain Location: Abdomen Datetime: 06/29/2023 13:00 Comments: poor strip d/t pt being in tub Datetime: 06/29/2023 12:25 Pain Relief Measures: Comfort Measures Datetime: 06/29/2023 11:30 Pain Coping: Talking Through Contractions Datetime: 06/29/2023 09:23 PATIENT CARE IV/Blood Work: IV Infusing per Order
== END 2023-07-01 12:15 | disposition home or self-care (01) | DRG 806 ==
LOC: WFO 08:31 → FBP 08:32 → WFO 08:37 → FBP 08:38
PROVIDERS: ADMIT Obstetrics & Gynecology; ATTEND Obstetrics & Gynecology
PROC: 10E0XZZ Delivery of Products of Conception, External Approach (ICD-10-PCS; principal; 2023-06-29)
PROC: 0HQ9XZZ Repair Perineum Skin, External Approach (ICD-10-PCS; 2023-06-29)
PROC: 3E033VJ Introduction of Other Hormone into Peripheral Vein, Percutaneous Approach (ICD-10-PCS; 2023-06-29)
PROC: 10907ZC Drainage of Amniotic Fluid, Therapeutic from Products of Conception, Via Natural or Artificial Opening (ICD-10-PCS; 2023-06-29)
PROC: 3E0134Z Introduction of Serum, Toxoid and Vaccine into Subcutaneous Tissue, Percutaneous Approach (ICD-10-PCS; 2023-06-29)
DX: O70.0 First degree perineal laceration during delivery (principal); B00.89 Other herpesviral infection; Z37.0 Single live birth; O98.52 Other viral diseases complicating childbirth; O99.824 Streptococcus B carrier state complicating childbirth; Z3A.40 40 weeks gestation of pregnancy; O69.81X0 Labor and delivery complicated by cord around neck, without compression, not applicable or unspecified; O69.2XX0 Labor and delivery complicated by other cord entanglement, with compression, not applicable or unspecified; O71.82 Other specified trauma to perineum and vulva; Z23 Encounter for immunization; Z78.9 Other specified health status; Z87.891 Personal history of nicotine dependence
CPT/HCPCS: 59409; 86850; 86900; 86901; 90716; A9270; J7120; 85025